=== PATIENT | female | born 1970 | race Caucasian/White ===

== ENCOUNTER → 2017-06-06 | Outpatient (CLI) | payer OTHER ==
--- NOTE | 2017-06-07 10:46 | MM ---
Reason for exam: screening (asymptomatic). Last mammogram was performed 1 year and 8 months ago. History: Family history of breast cancer in mother. Excisional biopsy of the left breast, 2003. Physical Findings: A clinical breast exam by your physician is recommended on an annual basis and results should be correlated with mammographic findings. MG 3D Screening Mammo W/Cad Bilateral CC and MLO view(s) were taken. Prior study comparison: October 20, 2015, bilateral MG 3d screening mammo w/cad. February 11, 2014, bilateral MG screening mammo w CAD. The breast tissue is extremely dense which could obscure a lesion on mammography. Developing asymmetry posterior left breast MLO view 8cm from nipple. This finding is changed when compared with previous exams. ASSESSMENT: Incomplete: need additional imaging evaluation, BI-RAD 0 RECOMMENDATION: Special view mammogram of the left breast. If lesion persists on supplemental views, image directed ultrasound is recommended. [facility] will attempt to contact patient to return for supplemental views and ultrasound if indicated.
== END | disposition home or self-care (01) ==
LOC: RADMAMWWP 10:45
PROVIDERS: ATTEND Pediatrics
DX: Z12.31 Encounter for screening mammogram for malignant neoplasm of breast (principal)
CPT/HCPCS: 77063; 77067

== ENCOUNTER → 2017-06-14 | Outpatient (CLI) | payer OTHER ==
--- NOTE | 2017-06-14 14:14 | MM ---
Reason for exam: additional evaluation requested from abnormal screening. Last mammogram was performed less than 1 month ago. History: Family history of breast cancer in mother. Excisional biopsy of the left breast, 2003. Physical Findings: Nurse did not find any significant physical abnormalities on exam. MG 3D Work Up W/Cad LT CC, MLO, LM, XCCL, and spot compression MLO view(s) were taken of the left breast. Prior study comparison: June 06, 2017, bilateral MG 3d screening mammo w/cad. October 20, 2015, bilateral MG 3d screening mammo w/cad. The breast tissue is heterogeneously dense. This may lower the sensitivity of mammography. There is no discrete abnormality, left upper outer quadrant posteriorly. These results were verbally communicated with the patient and result sheet given to the patient on 06/14/17. ASSESSMENT: Probably benign, BI-RAD 3 RECOMMENDATION: Follow-up diagnostic mammogram of the left breast in 6 months.
== END | disposition home or self-care (01) ==
LOC: RADMAMWWP 10:12
PROVIDERS: ATTEND Pediatrics
DX: R92.8 Other abnormal and inconclusive findings on diagnostic imaging of breast (principal)
CPT/HCPCS: 77065; G0279

== ENCOUNTER → 2018-02-21 | Outpatient (CLI) | payer OTHER ==
--- NOTE | 2018-02-22 08:00 | MM ---
Reason for exam: follow-up at short interval from prior study. Last mammogram was performed 8 months ago. History: Family history of breast cancer in mother. Excisional biopsy of the left breast, 2003. Physical Findings: Nurse did not find any significant physical abnormalities on exam. MG Diagnostic Mammo LT w CAD CC and MLO view(s) were taken of the left breast. Prior study comparison: June 14, 2017, left breast MG 3d work up w/cad LT. June 06, 2017, bilateral MG 3d screening mammo w/cad. The breast tissue is heterogeneously dense. This may lower the sensitivity of mammography. There is no discrete abnormality at previous posterior density. Focal asymmetry left upper outer quadrant, stable. No significant new findings when compared with previous films. These results were verbally communicated with the patient and result sheet given to the patient on 02/21/18. ASSESSMENT: Benign, BI-RAD 2 RECOMMENDATION: Return to routine screening mammogram schedule for both breasts. Back on schedule.
== END | disposition home or self-care (01) ==
LOC: RADMAMWWP 15:53
PROVIDERS: ATTEND Pediatrics
DX: R92.8 Other abnormal and inconclusive findings on diagnostic imaging of breast (principal)
CPT/HCPCS: 77065

== ENCOUNTER → 2018-11-05 | Outpatient (CLI) | payer OTHER ==
--- NOTE | 2018-11-05 13:53 | MM ---
Reason for exam: screening (asymptomatic). Last mammogram was performed 8 months ago. History: Family history of breast cancer in mother. Excisional biopsy of the left breast, 2003. Physical Findings: A clinical breast exam by your physician is recommended on an annual basis and results should be correlated with mammographic findings. MG 3D Screening Mammo W/Cad Bilateral CC, MLO, and XCCL view(s) were taken. Prior study comparison: February 21, 2018, left breast MG diagnostic mammo LT w CAD. June 14, 2017, left breast MG 3d work up w/cad LT. The breast tissue is heterogeneously dense. This may lower the sensitivity of mammography. There is no discrete abnormality. ASSESSMENT: Negative, BI-RAD 1 RECOMMENDATION: Routine screening mammogram of both breasts in 1 year.
== END | disposition home or self-care (01) ==
LOC: RADMAMWWP 08:11
PROVIDERS: ATTEND Pediatrics
DX: Z12.31 Encounter for screening mammogram for malignant neoplasm of breast (principal)
CPT/HCPCS: 77063; 77067

== ENCOUNTER → 2021-05-25 | Outpatient (CLI) | payer OTHER ==
[2021-05-25 18:20] LABS: Basophils # (A) 0.04 X 10*3/uL (0.00-0.10); Basophils % (A) 0.8 %; Eosinophils # (A) 0.03 X 10*3/uL (0.04-0.35); Eosinophils % (A) 0.6 %; HCT 46.2 % (37.2-46.3); HGB 14.4 g/dL (12.0-15.0); Lymphocytes % (A) 20.8 %; MCHC 31.2 g/dL (32.0-37.0); Mean Platelet Volume 9.7 fL (9.5-12.2); Monocytes # (A) 0.43 X 10*3/uL (0.20-1.00); Monocytes % (A) 8.1 %; Neutrophils # (A) 3.66 X 10*3/uL (1.80-7.70); Neutrophils % (A) 69.3 %; Platelet Count 261 X 10*3/uL (140-440); RBC 4.97 X 10*6/uL (4.10-5.20); RDW 13.8 % (11.5-14.5); WBC 5.28 X 10*3/uL (4.50-10.00)
[2021-05-25 22:01] LABS: African American GFR (CKD) 96.3 (60.0-200.0); Albumin 4.8 g/dL (3.8-4.9); Albumin/Globulin Ratio 2.21 (1.60-3.17); Anion Gap 15.5 mmol/L (10.00-18.00); BUN/Creat Ratio 18.96 Ratio (12.00-20.00); Blood Urea Nitrogen 15.7 mg/dL (9.0-27.0); Carbon Dioxide 23.1 mmol/L (20.0-27.5); Globulin 2.2 g/dL (1.6-3.3); Potassium 4.4 mmol/L (3.5-5.5); T4, Free (Free Thyroxine) 1.19 ng/dL (0.800-1.800); Total Bilirubin 0.5 mg/dL (0.30-1.20)
== END | disposition home or self-care (01) ==
LOC: LABWHC1 11:23
PROVIDERS: ATTEND Psychiatry & Neurology Neurology
DX: R42 Dizziness and giddiness (principal); R41.3 Other amnesia; H53.9 Unspecified visual disturbance; E55.9 Vitamin D deficiency, unspecified; E53.9 Vitamin B deficiency, unspecified
CPT/HCPCS: 36415; 80053; 82306; 82607; 84207; 84439; 84443; 84480; 85025

== ENCOUNTER 2022-03-16 06:39 | Day surgery (SDC) | payer OTHER ==
[~2022-03-16 06:39] MED LIST: LACTATED RINGERS 1,000 ML IV SCH
[2022-03-16] MEDS ORDERED: LACTATED RINGERS 1,000 ML IV ONE (07:10)
[2022-03-16 07:11] VITALS: TEMP 97.8
[2022-03-16] MEDS ORDERED: PROPOFOL 10 MG/ML 20 ML VIAL IV ONE (07:26)
[2022-03-16] MEDS ORDERED: LIDOCAINE 2% INJ 20 MG/ML (2 ML VIAL) ONE (07:26)
--- NOTE | 2022-03-16 07:34 | P.GSHP ---
History of Present Illness H&P Date: 03/16/22 CHIEF COMPLAINT: Colon screen HISTORY OF PRESENT ILLNESS: The patient is a 51-year-old female who presents for colon screen. Lower endoscopy was offered for further evaluation and management. PAST MEDICAL HISTORY: Please see list. PAST SURGICAL HISTORY: Please see list. MEDICATIONS: Please see list. ALLERGIES: Please see list. SOCIAL HISTORY: No illicit drug use FAMILY HISTORY: No reports of Crohn disease or ulcerative colitis. REVIEW OF ORGAN SYSTEMS: CONSTITUTIONAL: No reports of fevers or chills. PHYSICAL EXAM: VITAL SIGNS: Stable GENERAL: Well-developed pleasant in no acute distress. HEENT: No scleral icterus. Extraocular movements grossly intact. Moist buccal mucosa. NECK: Supple without lymphadenopathy. CHEST: Unlabored respirations. Equal bilateral excursions. CARDIOVASCULAR: Regular rate and rhythm. Distal 2+ pulses. ABDOMEN: Soft, nontender, nondistended. MUSCULOSKELETAL: No clubbing, cyanosis, or edema. ASSESSMENT: 1. Colon screen. PLAN: 1. Recommend proceeding with a lower endoscopy Past Medical History Past Medical History: Asthma History of Any Multi-Drug Resistant Organisms: None Reported Past Surgical History: Section Additional Past Surgical History / Comment(s): c section x1 Past Anesthesia/Blood Transfusion Reactions: No Reported Reaction, Motion Sickness Additional Past Anesthesia/Blood Transfusion Reaction / Comment(s): remote hx motion sickness Smoking Status: Never smoker - Past Family History Mother Family Medical History: Cancer Additional Family Medical History / Comment(s): breast and skin Father Family Medical History: Cancer Additional Family Medical History / Comment(s): skin cancers Medications and Allergies Home Medications Medication Instructions Recorded Confirmed Type Albuterol Sulfate [Proair Hfa] 2 sprays INHALATION BID PRN 03/15/22 03/16/22 History Cholecalciferol [Vitamin D3 (25 25 mcg PO HS 03/15/22 03/16/22 History Mcg = 1000 Iu)] Citalopram Hydrobromide [CeleXA] 10 mg PO HS 03/15/22 03/16/22 History Cyclobenzaprine [Flexeril] 5 mg PO HS 03/15/22 03/16/22 History Montelukast [Singulair] 10 mg PO HS 03/15/22 03/16/22 History Multivitamin [Multivitamins Adult 1 tab PO HS 03/15/22 03/16/22 History Gummies] Oxybutynin Chloride [Oxybutynin 10 mg PO HS 03/15/22 03/16/22 History Chloride ER] Allergies Allergy/AdvReac Type Severity Reaction Status Date / Time No Known Allergies Allergy Verified 03/16/22 07:15 Surgical - Exam Vital Signs Temp Pulse Resp BP Pulse Ox 97.8 F 74 17 122/71 96 03/16/22 07:05 03/16/22 07:05 03/16/22 07:05 03/16/22 07:05 03/16/22 07:05
--- NOTE | 2022-03-16 07:51 | P.PCN ---
Date of Procedure: 03/16/22 Description of Procedure: PREOPERATIVE DIAGNOSIS: Family history colon polyps, mother Colonoscopy screening, first POSTOPERATIVE DIAGNOSIS: Family history colon polyps, mother Colonoscopy screening External hemorrhoid OPERATION: Colonoscopy to the cecum, ileocecal valve and appendiceal orifice. SURGEON: Roz Parham MD. ANESTHESIA: MAC. INDICATIONS: The patient is a 51-year-old female who presents for her first colonoscopy screening. Benefits and risks were described and informed consent was obtained. DESCRIPTION OF PROCEDURE: The patient had undergone Sutab prep. The patient had been brought into the operating room and laid in the left lateral decubitus position. After adequate intravenous sedation, the rectum was examined with 2% lidocaine jelly. External hemorrhoids were encountered. The rectal tone was within normal limits. No lesions were palpated in the rectal vault. An Olympus colonoscope was advanced until the cecum, ileocecal valve and appendiceal orifice were clearly viewed. The prep was excellent. No scattered diverticulosis was encountered. No colonic polyps were found. No evidence of focal colitis was found. Retroflexion of the scope demonstrated grade 1 internal hemorrhoids without active bleeding or inflammation. The colon was desufflated. The patient had tolerated the procedure well. Withdrawal time was over 6 minutes. FINDINGS: Aronchick preparation quality scale 1 (1-5) Internal hemorrhoids, grade 1 External prolapsed hemorrhoids, grade 2 No arteriovenous malformations. No adenomatous polyps. No focal colitis. No sigmoid diverticulosis Highly redundant sigmoid colon RECOMMENDATIONS: Lower endoscopy in 5 years, 2026 Plan - Discharge Summary Discharge Rx Participant: No New Discharge Prescriptions: Continue Cholecalciferol [Vitamin D3 (25 Mcg = 1000 Iu)] 25 mcg PO HS Oxybutynin Chloride [Oxybutynin Chloride ER] 10 mg PO HS Albuterol Sulfate [Proair Hfa] 2 sprays INHALATION BID PRN PRN Reason: Shortness Of Breath Montelukast [Singulair] 10 mg PO HS Citalopram Hydrobromide [CeleXA] 10 mg PO HS Multivitamin [Multivitamins Adult Gummies] 1 tab PO HS Cyclobenzaprine [Flexeril] 5 mg PO HS Discharge Medication List Albuterol Sulfate [Proair Hfa] 2 sprays INHALATION BID PRN 03/15/22 [History] Cholecalciferol [Vitamin D3 (25 Mcg = 1000 Iu)] 25 mcg PO HS 03/15/22 [History] Citalopram Hydrobromide [CeleXA] 10 mg PO HS 03/15/22 [History] Cyclobenzaprine [Flexeril] 5 mg PO HS 03/15/22 [History] Montelukast [Singulair] 10 mg PO HS 03/15/22 [History] Multivitamin [Multivitamins Adult Gummies] 1 tab PO HS 03/15/22 [History] Oxybutynin Chloride [Oxybutynin Chloride ER] 10 mg PO HS 03/15/22 [History] Follow up Appointment(s)/Referral(s): Roz Parham MD [STAFF PHYSICIAN] - As Needed Patient Instructions/Handouts: *Surgery [facility] - (Anesthesia) Endoscopy Discharge Instructions, Colonoscopy (DC) Activity/Diet/Wound Care/Special Instructions: Repeat colonoscopy in 5 years, 2026 Discharge Disposition: HOME SELF-CARE
[2022-03-16 07:56] VITALS: RESP 16
[2022-03-16 08:11] VITALS: BP 115/72; PULSE 65
== END 2022-03-16 08:23 | disposition home or self-care (01) ==
LOC: ORWHC2ENDO 06:39
PROVIDERS: ATTEND Surgery Plastic and Reconstructive Surgery
DX: Z12.11 Encounter for screening for malignant neoplasm of colon (principal); J45.909 Unspecified asthma, uncomplicated; F32.A Depression, unspecified; K64.0 First degree hemorrhoids; K64.4 Residual hemorrhoidal skin tags; Z83.71 Family history of colonic polyps
CPT/HCPCS: J2704; J2001; G0121

== ENCOUNTER 2023-04-02 19:33 | Outpatient (CLI) | payer OTHER ==
[2023-04-03 13:33] LABS: Urine Alcohol Negative (Negative); Urine Barbiturate Negative (Negative); Urine Cocaine Negative (Negative); Urine Methadone Negative (Negative); Urine Opiates Negative (Negative); Urine Phencyclidine Negative (Negative)
--- NOTE | 2023-04-06 10:45 | P.PCN ---
Description of Procedure: POLYSOMNOGRAPHY and MSLT REPORT PROCEDURE(S)/DATE(S): Polysomnography 04/02/2023, multiple sleep latency test 04/03/2023 CLINICAL: Patient has been seen in the sleep center for evaluation of obstructive sleep apnea-hypopnea syndrome. Please see my consultation. Sleep study has been done for evaluation of patient breathing during the sleep. PROCEDURE: The standard montage for clinical polysomnography included the electroencephalogram, the electrooculogram, the mentalis surface el ectromyography and Lead II cardiography. The respiratory battery consisted of measurements of nasal/buccal air flow, pressure transducer measurements from nose, thoracic and/or abdominal effort and intercostal surface electromyography. Video monitoring has been done to check for any parasomnia events. Nocturnal oxyhemoglobin saturations were obtained by finger oximetry. Step-meadows titration with positive airway pressure was utilized to control the respiratory events, if necessary. RESULTS: During the diagnostic sleep study sleep efficiency was normal 92.4 %. Latency to sleep onset was normal 14.5 min. Sleep architecture showed stage NI was slightly short 3.7 %, Delta sleep was absent 0 %, REM sleep was increased to 38.5 %. REM sleep latency was slightly short 48.0 minutes. Respiratory channel showed 0 obstructive apneas, 0 mixed apneas, 0 central apneas, 2 hypopneas with lowest oxygen level 90%. Total apnea hypopnea index was 0.3. Heart rate was in the range between 55 and 66, average 59 by computer calculation. EMG showed 3.0 periodic limb movements per hour with 0.3 micro-arousals per hour. Multiple sleep latency test has been done on the following day and consisted f rom 5 naps. Patient fell asleep on all naps. Mean sleep latency was short 5.2 minutes. IMPRESSIONS: 1. No significant respiratory abnormalities have been documented during the sleep study. Normal oxygenation during sleep. 2. No significant periodic limb movements have been documented. 3. Multiple sleep latency test confirmed sleepiness but extremely short sleep latency, mean sleep latency was 5.2 minutes. Differential diagnosis include to narcolepsy and idiopathic hypersomnia. No sleep onset REM periods have been documented during MSLT, but patient is on treatment with SSRIs. Amount of REM sleep during polysomnogram is above normal range and latency to first REM period during polysomnogram is short. Please see other impressions from consultation PLAN: 1. I will see patient for follow-up visit to explain results of the tests and recommendations 2. Patient will start treatment with medications preventing sleepiness. 3. Sleep hygiene with regular time in bed for at least 7-1/2 hours. 4. No driving if feeling sleepiness. 5. Daytime naps permitted. Thank you very much for allowing me to participate in the management of your patient. Sincerely, Kal Davis MD, PhD, FAASM. Diplomat of [place] [employer], Sleep Medicine Board by [place] [employer] [facility] [place]
== END 2023-04-03 16:50 | disposition home or self-care (01) ==
LOC: 3 N SLEEP 19:33
PROVIDERS: ATTEND Internal Medicine
DX: G47.33 Obstructive sleep apnea (adult) (pediatric) (principal); G47.10 Hypersomnia, unspecified
CPT/HCPCS: 80306; 95805; 95810

== ENCOUNTER → 2023-04-06 | Outpatient (CLI) | payer OTHER ==
--- NOTE | 2023-04-06 14:55 | P.PN ---
Subjective DATE: 04/06/2023 FOLLOW UP VISIT. Patient returned to sleep center for follow-up visit to discuss results of sleep study and following plan. I discuss results of sleep studies with patient in details. Polysomnogram did not show any significant respiratory abnormalities, no significant oxygen desaturation have been documented. High sleep efficiency at night sleep study Multiple sleep latency test on the following day showed mean sleep latency 5.2 minutes, accounting 5 naps. No sleep onset REM periods have been documented. Sleep latency on the last nap was longest 9.5 minutes subsequently if that could correlate only 4 naps mean sleep latency will be pathologically short. . [place] sleepiness scale is 18. MEDICATIONS:1. Celexa 10 mg once a day 2. Oxybutynin 3. Albuterol as needed 4. Singulair 10 mg once a day During physical exam: GENERAL: A pleasant patient without any distress. VITAL SIGNS: BP 136/74, HR 68, RR 16 , weight 140.4, temperature 98.1, oxygen saturation at room air 99 . HEENT: PERRLA, EOMI. NECK: Supple. No JVD. LUNGS: Clear to percussion and to auscultation. Good air exchange. No wheezing or rhonchi. HEART: S1, S2 regular. ABDOMEN: Soft and nontender. EXTREMITIES: No clubbing or cyanosis. LIQUOR TESTER: Awake, alert, and oriented x3. No focal deficit. Impressions: 1. No significant respiratory abnormalities during sleep study 2. No significant periodic limb movements during sleep test. 3. Sleepiness confirmed by multiple sleep latency test. No sleep onset REM periods, but patient is on treatment with Celexa.. 4. Asthma. 5. Depression. 6. Urinary incontinence. 7. Menopause. 8. Insufficient amount of sleep on weekdays. Plan: 1. Patient will be started on treatment with Adderall 5 mg first thing in the morning and at 1 PM. 2. Sleep hygiene with regular time in bed for at least 8 hours. 3. Daytime naps permitted 4. Precautions related to driving. No driving if feel any sleepiness. Patient is aware about civil and criminal liability for unsafe driving, promised to f dilmalow recommendations. 5. Follow up visit in 4 months or earlier if patient has any problems. Thank you very much for allowing me to participate in the management of your patient. Kal Davis MD, PhD, FAASM. Diplomat of [place] [employer], Sleep Medicine Board by [employer] Manager [employer] [facility] [place]
== END ==
LOC: 3 N SLEEP 14:07
PROVIDERS: ATTEND Internal Medicine
DX: F32.A Depression, unspecified (principal); J45.909 Unspecified asthma, uncomplicated; R32 Unspecified urinary incontinence; Z78.0 Asymptomatic menopausal state; Z79.899 Other long term (current) drug therapy
CPT/HCPCS: 99212

== ENCOUNTER 2023-04-20 18:47 | Emergency (ER) | payer OTHER ==
--- NOTE | 2023-04-20 18:51 | ED ---
General Adult HPI <Caleb Girard - Last Filed: 04/20/23 18:51> - General Source: patient, RN notes reviewed Mode of arrival: ambulatory Limitations: no limitations - History of Present Illness MD Complaint: Fall, head injury <Mady Hamilton - Last Filed: 04/21/23 03:56> - General Chief complaint: Fall Stated complaint: fall hit back of head and back on ice Time Seen by Provider: 04/20/23 18:49 - History of Present Illness Initial comments: 52-year-old female presenting to the ED with a chief complaint of head injury. Patient states that she was outside at approximately 5 PM when she slipped on a piece of ice and fell backwards. Patient states that she hit the back of her head. Patient is presenting to the ED as patient's daughter notes that she has difficulties with memory after this. Patient states that she does not remember the fall well and is unsure if she lost consciousness when she hit her head. Patient is not on any blood thinners. (Caleb Girard) This is a 52-year-old female who presents to the emergency department for a fall. States that she was walking around outside this evening around 5 PM, when she slipped on ice and fell backwards, hitting her head. Denies any loss of consciousness. She is not taking any blood thinners. Also denies sustaining any other injuries. According to her family, she had some confusion and memory problems shortly afterwards, but has since started to improve. Denies any substantial pain at this time. (Mady Hamilton) - Related Data Home Medications Medication Instructions Recorded Confirmed Albuterol Sulfate [Proair Hfa] 2 sprays INHALATION BID PRN 03/15/22 03/16/22 Cholecalciferol [Vitamin D3 (25 25 mcg PO HS 03/15/22 03/16/22 Mcg = 1000 Iu)] Citalopram Hydrobromide [CeleXA] 10 mg PO HS 03/15/22 03/16/22 Cyclobenzaprine [Flexeril] 5 mg PO HS 03/15/22 03/16/22 Montelukast [Singulair] 10 mg PO HS 03/15/22 03/16/22 Multivitamin [Multivitamins Adult 1 tab PO HS 03/15/22 03/16/22 Gummies] Oxybutynin Chloride [oxyBUTYnin 10 mg PO HS 03/15/22 03/16/22 chloride ER] Allergies Allergy/AdvReac Type Severity Reaction Status Date / Time No Known Allergies Allergy Verified 03/16/22 07:15 Review of Systems ROS Other: All systems not noted in ROS Statement are negative. <BradyCaleb vides - Last Filed: 04/20/23 18:51> ROS Other: All systems not noted in ROS Statement are negative. <Mady Hamilton - Last Filed: 04/21/23 03:56> ROS Statement: Those systems with pertinent positive or pertinent negative responses have been documented in the HPI. Past Medical History Past Medical History: Asthma History of Any Multi-Drug Resistant Organisms: None Reported Past Surgical History: Section Additional Past Surgical History / Comment(s): c section x1 Past Anesthesia/Blood Transfusion Reactions: No Reported Reaction, Motion Sickness Additional Past Anesthesia/Blood Transfusion Reaction / Comment(s): remote hx motion sickness Smoking Status: Never smoker - Past Family History Mother Family Medical History: Cancer Additional Family Medical History / Comment(s): breast and skin Father Family Medical History: Cancer Additional Family Medical History / Comment(s): skin cancers <Caleb Girard - Last Filed: 04/20/23 18:51> General Exam General appearance: alert, in no apparent distress Extremities exam: Present: normal inspection Back exam: Present: normal inspection Neurological exam: Present: alert <Caleb Girard - Last Filed: 04/20/23 18:51> Limitations: no limitations General appearance: alert, in no apparent distress Head exam: Present: atraumatic, normocephalic, normal inspection Eye exam: Present: normal appearance, PERRL, EOMI. Absent: scleral icterus, conjunctival injection, periorbital swelling Respiratory exam: Present: normal lung sounds bilaterally. Absent: respiratory distress, wheezes, rales, rhonchi, stridor Cardiovascular Exam: Present: regular rate, normal rhythm, normal heart sounds. Absent: systolic murmur, diastolic murmur, rubs, gallop, clicks Neurological exam: Present: alert, oriented X3, CN II-XII intact Psychiatric exam: Present: normal affect, normal mood Skin exam: Present: warm, dry, intact, normal color. Absent: rash <LucieyelenaMady - Last Filed: 04/21/23 03:56> Course Vital Signs 04/20/23 04/20/23 19:41 21:55 Temperature 98.7 F 98.0 F Pulse Rate 64 65 Respiratory 18 18 Rate Blood Pressure 154/94 143/88 O2 Sat by Pulse 99 99 Oximetry Medical Decision Making - Radiology Data Radiology results: report reviewed, image reviewed <LucieyelenaMady - Last Filed: 04/21/23 03:56> - Medical Decision Making This is a 52-year-old female who presents to the emergency department for a fall and head injury. Was pt. sent in by a medical professional or institution? @ -No Did you speak to anyone other than the patient for history? @ -Her family provided the information about her confusion shortly after the fall. Did you review nursing and triage notes? @ -Yes, and I agree, it is accurate with regards to the patient's symptoms. Were old charts reviewed? @ -No Differential Diagnosis? @ -Differential Diagnosis Head Injury: Contusion, hematoma, intracranial hemorrhage, skull fracture, whiplash, concussion, this is not meant to be an all-inclusive list. EKG interpreted by me (3pts min.)? @ -Not obtained X-rays interpreted by me (1pt min.)? @ -Not obtained CT interpreted by me (1pt min.)? @ -Computed tomography scan of the brain and c-spine obtained. My interpretation identifies no evidence of an acute intracranial hemorrhage, skull fracture, or cervical spine fracture. U/S interpreted by me (1pt. min.)? @ -Not obtained What testing was considered but not performed? (CT, X-rays, U/S, labs)? Why? @ -None What meds were considered but not given? Why? @ -None Did you discuss the management of the patient with other professionals? @ -No Did you reconcile home meds? @ -No Was smoking cessation discussed for >3mins.? @ -No Was critical care preformed (if so, how long)? @ -No Were there social determinants of health that impacted care today? How? (Homelessness, low income, unemployed, alcoholism, drug addiction, transportation, low edu. Level, literacy, decrease access to med. care, long-term, rehab)? @ -No Was there de-escalation of care discussed even if they declined? (Discuss DNR or withdrawal of care, Hospice)? @ -No What co-morbidities impacted this encounter? (DM, HTN, Smoking, COPD, CAD, Cancer, CVA, Hep., AIDS, mental health diagnosis, sleep apnea, morbid obesity)? @ -None Was patient admitted / discharged? @ -Discharged. Computed tomography scan of the brain and C-spine obtained r evealing no acute process. Patient declined the need for any pain medication in the emergency department. Advised that she may have sustained a concussion and we discussed the risks for second impact syndrome. Otherwise advised ibuprofen and Tylenol as needed for pain relief and the patient was discharged home in stable condition. Undiagnosed new problem with uncertain prognosis? @ -None Drug Therapy requiring intensive monitoring for toxicity (Heparin, Nitro, Insulin, Cardizem)? @ -None Were any procedures done? @ -None Diagnosis/symptom? @ -Fall, head injury Acute, or Chronic, or Acute on Chronic? @ -Acute Uncomplicated (without systemic symptoms) or Complicated (systemic symptoms)? @ -Uncomplicated Side effects of treatment? @ -None Exacerbation, Progression, or Severe Exacerbation] @ -Not applicable Poses a threat to life or bodily function? @ -No Return precautions reviewed in depth, the patient is instructed to return to the emergency department with any new, worsening, or concerning symptoms. Patient verbalized understanding. This case was discussed in detail with the attending ED physician, Dr. Adams. Presentation, findings, and treatment plan discussed in detail as well. (Mady Hamilton) Disposition <Caleb Girard - Last Filed: 04/20/23 18:51> Is patient prescribed a controlled substance at d/c from ED?: No <Mady Hamilton - Last Filed: 04/21/23 03:56> Clinical Impression: Fall, Head injury Disposition: HOME SELF-CARE Instructions (If sedation given, give patient instructions): Head Injury (ED), Fall Prevention (ED) Additional Instructions: Return to the emergency department with any new, worsening, or concerning symptoms. Alternate with ibuprofen and Tylenol as needed for pain relief. Follow up with your primary care provider in 1-2 days. Referrals: None,Stated [REFERRING] - 1-2 days
[2023-04-20 19:53] VITALS: RESP 18
--- NOTE | 2023-04-20 21:16 | CT ---
EXAMINATION TYPE: CT brain jyotsna urbano DATE OF EXAM: 04/20/2023 COMPARISON: NONE HISTORY: posterior head injury, fall CT DLP: 1189.1 mGycm. Automated Exposure Control for Dose Reduction was Utilized. TECHNIQUE: CT scan of the head and cervical spine are performed without contrast. FINDINGS: There is no acute intracranial hemorrhage, mass effect, or midline shift identified. The v entricles and sulci are within normal limits in size. The globes are intact and the visualized sinuse s are clear. Cervical spine is visualized in its entirety from C1 through upper thoracic levels and demonstrates s atisfactory alignment without evidence of acute fracture or dislocation. Prevertebral soft tissue jethro ears within normal limits. The C1-C2 articulation is unremarkable. IMPRESSION: 1. There is no acute fracture or dislocation evident in the cervical spine. 2. No acute intracranial hemorrhage, mass effect, or midline shift is seen.
[2023-04-20 21:58] VITALS: BP 143/88; PULSE 65; TEMP 98
== END 2023-04-20 21:56 | disposition home or self-care (01) ==
LOC: SUPCPDRO 18:47 → EC 18:47
DX: S09.90XA Unspecified injury of head, initial encounter (principal); J45.909 Unspecified asthma, uncomplicated; Z79.899 Other long term (current) drug therapy; W01.10XA Fall on same level from slipping, tripping and stumbling with subsequent striking against unspecified object, initial encounter
CPT/HCPCS: 70450; 72125; 99284

== ENCOUNTER → 2023-08-03 | Outpatient (CLI) | payer OTHER ==
[2023-08-03 14:40] VITALS: BP 145/84; PULSE 57; RESP 16; TEMP 98
--- NOTE | 2023-08-03 15:08 | P.PN ---
Subjective DATE: 08/03/2023 FOLLOW UP VISIT. Patient returned to sleep center for follow-up visit related to treatment of significant excessive daytime sleepiness secondary to narcolepsy. Presently patient is on treatment with Adderall 5 mg twice a day. With this regimen patient alertness is on control, no any side effects of medications. . Ackerman sleepiness scale is 5, which is normal. MEDICATIONS:1. Adderall 5 mg twice a day. 2. Singulair 10 mg once a day 3. Oxybutynin 4. Celexa 5. Ventolin During physical exam: GENERAL: A pleasant patient without any distress. VITAL SIGNS: Please see below. HEENT: PERRLA, EOMI. NECK: Supple. No JVD. LUNGS: Clear to percussion and to auscultation. Good air exchange. No wheezing or rhonchi. HEART: S1, S2 regular. ABDOMEN: Soft and nontender. EXTREMITIES: No clubbing or cyanosis. [employer]EIGN [employer] CONSULTANT: Awake, alert, and oriented x3. No focal deficit. Impressions: 1. Significant excessive daytime sleepiness confirmed by multiple sleep latency test. Mean sleep latency 5.2 minutes. No sleep onset REM. During the MSLT, but patient was on treatment with Celexa which may decrease amount of REM sleep. 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 2. Asthma. 3. Depression. 4. Urinary incontinence. 5. Menopause. Plan: 1. Patient will continue treatment with Adderall 5 mg twice a day. 2. Sleep hygiene with regular time in bed for at least 8 hours. 3. Daytime naps permitted 4. Precautions related to driving. No driving if feel any sleepiness. Patient is aware about civil and criminal liability for unsafe driving, promised to follow recommendations. 5. Follow up visit in 4-6 months or earlier if patient has any problems. Thank you very much for allowing me to participate in the management of your patient. Kal Davis MD, PhD, FAASM. Diplomat of [employer], Sleep Medicine Board by [employer] [facility] [place] Objective - Vital Signs Vital signs: Vital Signs Temp 98.0 F 08/03/23 14:28 Pulse 57 L 08/03/23 14:28 Resp 16 08/03/23 14:28 BP 145/84 08/03/23 14:28 Pulse Ox 99 08/03/23 14:28 FiO2 Intake & Output 08/02/23 08/03/23 08/03/23 18:59 06:59 18:59 Weight 60.498 kg
== END ==
LOC: 3 N SLEEP 14:09
PROVIDERS: ATTEND Internal Medicine
DX: G47.10 Hypersomnia, unspecified (principal); G47.52 REM sleep behavior disorder; J45.909 Unspecified asthma, uncomplicated; F32.A Depression, unspecified; R32 Unspecified urinary incontinence; Z78.0 Asymptomatic menopausal state; Z79.899 Other long term (current) drug therapy
CPT/HCPCS: 99212